=== PATIENT | male | born 1960 | race Caucasian/White ===

== ENCOUNTER → 2023-11-03 06:24 | Day surgery (SDC) | payer MEDICARE, SELFPAY | LOC: GI 06:24 | PROVIDERS: ATTENDING PHYSICIAN Internal Medicine | DX: Z12.11 Encounter for screening for malignant neoplasm of colon (principal); D12.3 Benign neoplasm of transverse colon; K57.30 Diverticulosis of large intestine without perforation or abscess without bleeding; K64.8 Other hemorrhoids | CPT/HCPCS: 45385; 88305 ==

== ENCOUNTER → 2024-03-11 07:26 | Outpatient (REF) | payer MEDICARE, SELFPAY ==
[2024-03-11 08:14] LABS: % Basophils 0.7 % (0-2); % Eosinophils 2.3 % (0-6); % Immature Granulocytes 0.1 % (0-0.5); % Lymphocytes 33.7 % (20.5-51.1); % Monocytes 5.7 % (1.7-9.3); % Neutrophils 57.5 % (42.2-75.2); Absolute Basophils 0.1 10^3/uL (0-0.2); Absolute Eosinophils 0.2 10^3/uL (0-0.7); Absolute Lymphocytes 3.1 10^3/uL (1.2-3.4); Absolute Monocytes 0.5 10^3/uL (0.1-0.6); Absolute Neutrophils 5.2 10^3/uL (1.4-6.5); Hematocrit 42.5 % (39.0-52.0); Mean Corp Hgb Conc. 32.9 g/dL (33.0-37.0); Mean Corpuscular Hgb 29.9 pg (27.0-31.0); Mean Corpuscular Volume 90.8 fL (80.0-94.0); Mean Platelet Volume 11.6 fL (7.4-10.4); Nucleated Red Blood Cells % 0 % (-); Platelet Count 178 10^3/uL (130-400); Red Blood Cell Count 4.68 10^6/uL (4.70-6.10); Red Cell Dist. Width 13.7 % (11.5-14.5); White Blood Cell Count 9.1 10^3/uL (4.8-10.8)
[2024-03-11 08:39] LABS: Protein/creatinine Ratio 0.1; Urine Protein 18 mg/dl
[2024-03-11 08:49] LABS: Blood Urea Nitrogen 21 mg/dl (9-20); Calcium 9.1 mg/dl (8.4-10.2); Carbon Dioxide 28 mmol/L (22-30); Chloride 101 mmol/L (98-107); Glucose 104 mg/dl (70-99); HDL Cholesterol 37 mg/dl; LDL Cholesterol, Calculated 69 mg/dl; Phosphorus 3.2 mg/dl (2.5-4.5); Potassium 4.2 mmol/L (3.5-5.1); Sodium 138 mmol/L (135-145); Total Cholesterol 136 mg/dl (50-199); Triglyceride 150 mg/dl (10-149); Uric Acid 6.2 mg/dl (3.5-8.5); Very Low Density Lipoprotein 30 mg/dl (0-30); eGFR > 60.00
[2024-03-11 09:00] LABS: Intact PTH 90.9 pg/ml (13.6-85.8)
[2024-03-11 09:18] LABS: PSA, Total - Screen 0.59 ng/ml (0.0-4.0)
== END ==
LOC: REG 07:26
PROVIDERS: ATTENDING PHYSICIAN Surgery; FAMILY PHYSICIAN Family Medicine; REFERRING PHYSICIAN Internal Medicine
DX: Z12.5 Encounter for screening for malignant neoplasm of prostate (principal); N18.32 Chronic kidney disease, stage 3b; R73.03 Prediabetes; E78.2 Mixed hyperlipidemia; E79.0 Hyperuricemia without signs of inflammatory arthritis and tophaceous disease
CPT/HCPCS: 36415; 80061; 80069; 82570; 83036; 83970; 84156; 84550; 85025; G0103

== ENCOUNTER → 2024-04-20 13:49 | Outpatient (REF) | payer MEDICARE, SELFPAY ==
[2024-04-20 15:38] LABS: TSH 1.63 uIU/ml (0.47-4.68)
== END ==
LOC: REG 13:49
PROVIDERS: ATTENDING PHYSICIAN Family Medicine
DX: E03.9 Hypothyroidism, unspecified (principal)
CPT/HCPCS: 36415; 84443

== ENCOUNTER → 2024-06-01 11:06 | Outpatient (REF) | payer MEDICARE, SELFPAY ==
[2024-06-01 12:38] LABS: Blood Urea Nitrogen 26 mg/dl (9-20); Calcium 9.8 mg/dl (8.4-10.2); Carbon Dioxide 25 mmol/L (22-30); Chloride 105 mmol/L (98-107); Glucose 94 mg/dl (70-99); Phosphorus 3.5 mg/dl (2.5-4.5); Potassium 4.5 mmol/L (3.5-5.1); Sodium 140 mmol/L (135-145); eGFR 56.83
[2024-06-03 10:14] LABS: Intact PTH 86.3 pg/ml (13.6-85.8)
[2024-06-04 02:02] LABS: Vitamin D 1,25 Dihydroxy 29.9 pg/mL (19.9-79.3)
== END ==
LOC: REG 11:06
PROVIDERS: ATTENDING PHYSICIAN Internal Medicine; FAMILY PHYSICIAN Family Medicine
DX: N18.32 Chronic kidney disease, stage 3b (principal); I10 Essential (primary) hypertension; R60.0 Localized edema; G62.9 Polyneuropathy, unspecified
CPT/HCPCS: 36415; 80069; 82652; 83970